=== PATIENT | female | born 1935 | race Caucasian/White ===

== ENCOUNTER → 2024-08-28 14:52 | Outpatient (BNVA) | payer MEDICARE, OTHER, SELFPAY | PROVIDERS: PCP Internal Medicine; Visit Provider Internal Medicine | DX: J84.9 Interstitial pulmonary disease, unspecified (principal); E78.00 Pure hypercholesterolemia, unspecified; I26.99 Other pulmonary embolism without acute cor pulmonale; K21.9 Gastro-esophageal reflux disease without esophagitis; F03.90 Unspecified dementia, unspecified severity, without behavioral disturbance, psychotic disturbance, mood disturbance, and anxiety; Z79.01 Long term (current) use of anticoagulants; Z23 Encounter for immunization | CPT/HCPCS: 90471; 90656; 96127; 99212 ==

== ENCOUNTER 2024-08-28 14:53 | Outpatient (AMB) | payer MEDICARE, OTHER, SELFPAY ==
--- NOTE | 2024-08-28 14:55 | A.OFFPC_ITS ---
Vital Signs 08/28/24 14:58 Height 4 ft 11 in Weight 145 lb 6 oz BMI 29.4 BP 110/70 Blood Pressure Location Lt brachial Position Sitting Pulse 86 Pulse Source Pulse Oximeter Pulse Oximetry (%) 96 Oxygen Delivery Method Room Air Intake Visit Reasons: 4mth f/u Intake Note: Patient is here to follow up on GERD, Hypercholesterolemia, Cognitive changes. Spouse requesting for SUPPLY CHAIN PROGRAM MANAGER services. Action Finisher Required: No Sales Assistant Institutional Sales: Present Accompanied by: Spouse Allergies atorvastatin [Lipitor] Allergy (Unknown, Verified 08/28/24 14:58) Unknown beclomethasone [From Qvar] Allergy (Unknown, Verified 08/28/24 14:58) Unknown oxycodone [From OxyContin] Allergy (Unknown, Verified 08/28/24 14:58) Hives penicillin V Allergy (Unknown, Verified 08/28/24 14:58) Unknown simvastatin Allergy (Unknown, Verified 08/28/24 14:58) Unknown Tobacco use date assessed: 08/28/24 Fall risk assessment: No Falls in past year Last assessed Fall Risk: 08/28/24 Dental Screening Dental Screen Date: 08/28/24 Did you have a dental visit in the last 12 months?: No Did you have a dental problem in the last 6 months where you did not have access to dental care?: No Was dental information given to patient?: No HPI 4mth f/u HPI Details 88-year-old overweight female with inter stitial lung disease history of pulmonary embolism depression GERD last seen in 01/29/2023. now with dementia, sits only at home. is asking for help at home [facility] Medical History Anxiety and depression GERD (gastroesophageal reflux disease) History of breast cancer History of esophageal dilatation Hypercholesterolemia Interstitial lung disease Pulmonary nodule Screening for diabetes mellitus Varicose veins of both lower extremities Vitamin B12 deficiency Vitamin D deficiency Surgical History History of colonoscopy H/O bilateral mastectomy History of surgery History of lumbar laminectomy History of tonsillectomy History of appendectomy History of section History of total abdominal hysterectomy History of cataract surgery History of lung biopsy H/O right mastectomy Family History Father Stroke Diabetes Hypertension Mother Diabetes Hypertension Cancer Brother No problems noted. Sister No problems noted. Son No problems noted. Daughter No problems noted. Daughter No problems noted. Social History Household Members: Spouse Household Members Other:: Grandchildren and spouse Housing: Apartment Alcohol intake: never Patient Tobacco Use Status: Never used Tobacco e-Cigarette/Vaping Use: Never Used Second Hand Smoke Exposure: No service: No Current occupational status: retired Cognitive needs: No Hearing needs: Yes Vision needs: Yes Questionnaire PHQ-9 Over the last 2 weeks, how often have you been bothered by any of the following problems? 1. Little interest or pleasure in doing things: not at all 2. Feeling down, depressed, or hopeless: not at all 3. Trouble falling or staying asleep, or sleeping too much: not at all 4. Feeling tired or having little energy: not at all 5. Poor appetite or overeating: not at all 6. Feeling bad about yourself - or that you are a failure or have let yourself or your family down: not at all 7. Trouble concentrating on things, such as reading the newspaper or watching television: not at all 8. Moving or speaking so slowly that other people could have noticed. Or the opposite - being so fidgety or restless that you have been moving around a lot more than usual: not at all 9. Thoughts that you would be better off or of hurting yourself in some way: not at all Total score: 0 Depression Screening Interpretation: Negative Depression Screening Done: Yes Source: Developed by Drs. Yohan Simental, Danae Osborne, Baron Will and colleagues, with an educational alverto from [employer]. Thrive Questionnaire Date Thrive assessed: 08/28/24 I am a: Patient What is your living situation today?: I have a steady place to live Within the past 12 months, did the food you bought not last and you didn't have the money to get more?: Never true Within the past 12 months, did you worry whether your food would run out before you got money to buy more?: Never true Do you have trouble paying for medicines?: No Do you have trouble getting transportation to medical appointments?: No Do you have trouble paying your heating and electricity bill?: No Do you have trouble taking care of your child, family member or friend?: No Do you have trouble with day-to-day activities such as bathing, preparing meals, shopping, managing finances, etc.?: No Are you currently unemployed and looking for a job?: No Are you interested in more education?: No Currently or been in a relationship where the following occur: No concerns reported THRIVE Score: 0 AUDIT C Alcohol Use Questionnaire (AUDIT-C) 1. How often do you have a drink containing alcohol?: Never Total Score: 0 HARI-7 AMB Questionnaire HARI-7 Date HARI - 7 assessed: 08/28/24 Feeling nervous, anxious, or on edge: 0 = Not at all Not being able to stop or control worryin = Not at all Worrying too much about different things: 0 = Not at all Trouble relaxin = Not at all Being so restless that it is hard to sit still: 0 = Not at all Becoming easily annoyed or irritable: 0 = Not at all Feeling afraid as if something awful might happen: 0 = Not at all Total HARI-7 score (0-4 normal; 5-9 mild; 10-14 moderate; 15-21 severe): 0 Source: Developed by Drs. Yohan Simental, Danae Osborne, Baron Will and colleagues, with an educational alverto from [employer]. Physical exam (Primary Care) Vital Signs: Last Vital Signs Pulse 86 08/28/24 14:58 BP 110/70 08/28/24 14:58 Pulse Ox 96 08/28/24 14:58 Oxygen Delivery Method Room Air 08/28/24 14:58 BMI result Body Mass Index 29.4 Tobacco/Smoking Status: Tobacco use Status Tobacco use date assessed 08/28/24 08/28/24 15:00 Patient Tobacco Use Status Never used Tobacco 08/28/24 15:00 e-Cigarette/Vaping Use Never Used 08/28/24 15:00 PHQ-9: PHQ-9 Score PHQ-9: Total score 0 08/28/24 15:16 Depression Screening Interpretation: Negative Thrive Assessment: Date of Thrive Assessment Date Thrive assessed 08/28/24 08/28/24 15:00 Currently or been in a relationship where the following occur: No concerns reported Const General: alert; No acute distress Eyes Conjunctivae: conjunctivae normal Resp Auscultation: clear to auscultation bilaterally Cardio Rate: regular rate Rhythm: regular rhythm GI Inspection: Yes normal to inspection Extrem General: Yes normal to inspection and No edema Office Procedures Flu Questionnaire Does the patient have a severe egg allergy?: No Does the patient have severe life threatening allergies?: No Does the patient have a fever or illness today?: No Has the patient ever had Guillain-Toney Syndrome?: No Has the patient ever had any past reaction to a flu shot?: No Immunizations Fluarix Triv [id number] (PF) 45 mcg (15 mcg x 3)/0.5 mL IM syringe Performing Provider: Virgil Pizarro MD [facility] [place] [facility] Administered by: Petrona Ha LPN on 08/28/24 15:25 Dose Route Admin Location Dispensed Lot Number Expiration Date [facility] Tack Maker 0.5 mL IM Left Deltoid 0.5 mL [id number] 05/11/25 30946-106-06 [employer] VIS Given Date VIS Provided VIS Publication Date 08/28/24 Single Vaccine 21 Eligibility Eligibility Date Funding Source Not [facility] Eligible 08/28/24 Private Coding Level of Care Code Est Pt Level 4 (07161) Diagnoses Interstitial lung disease J84.9 Pulmonary embolism I26.99 Hypercholesterolemia E78.00 Gastroesophageal reflux disease without esophagitis K21.9 Esophagitis presence: without esophagitis Dementia F03.90 Assessment & Plan Assessment & Plan (1) Interstitial lung disease: Comment: Hypersensitivity pneumonitis Dr.Adjello Hawkins Code(s): J84.9 - Interstitial pulmonary disease, unspecified Category: Medical Plan: Continue with oxygen and albuterol inhalers (2) Pulmonary embolism: Comment: 06/2022 Code(s): I26.99 - Other pulmonary embolism without acute cor pulmonale Category: Medical Plan: Continue with anticoagulation on apixaban 5 mg twice a day will advised renal function tests (3) Hypercholesterolemia: Code(s): E78.00 - Pure hypercholesterolemia, unspecified Category: Medical Plan: Avoid fried foods, chicken skin, eggs, butter margarine, pastries and meat. Be it pork or beef they have a lot of cholesterol continuing to monitor (4) GERD (gastroesophageal reflux disease): Code(s): K21.9 - Gastro-esophageal reflux disease without esophagitis Category: Medical Qualifiers: Esophagitis presence: without esophagitis Qualified Code(s): K21.9 - Gastro-esophageal reflux disease without esophagitis Plan: Avoid the foods that causes that usually spicy foods, tomato products, juices, coffee, soda and foods that your sensitive to. After eating do not lie down, allow 3-4 hours before in lie down. And keep the head of bed above 30 degrees to avoid the acid from going up. (5) Dementia: Code(s): F03.90 - Unspecified dementia, unspecified severity, without behavioral disturbance, psychotic disturbance, mood disturbance, and anxiety Category: Medical Plan: With the memory problem patient is in need of some help at home for activities of daily living like bathing keeping moving med education. Orders: Orders Influenza [id number] Immunization Today Z23 - Encounter for immunization Complete Blood Count Auto Diff Today J84.9 - Interstitial pulmonary disease, unspecified Free T4 (Free Thyroxine) Today J84.9 - Interstitial pulmonary disease, unspecified Vitamin B12 and Folate Today J84.9 - Interstitial pulmonary disease, unspecified Comprehensive Met. Panel Today J84.9 - Interstitial pulmonary disease, unspecified Thyroid Stimulating Hormone Today J84.9 - Interstitial pulmonary disease, unspecified
[2024-08-28 14:58] VITALS: BP 110/70; PULSE 86; O2SAT 96; BMI 29.4
== END 2024-08-28 15:38 | disposition home or self-care (01) ==
PROVIDERS: PCP Internal Medicine; Visit Provider Internal Medicine
DX: J84.9 Interstitial pulmonary disease, unspecified (principal); I26.99 Other pulmonary embolism without acute cor pulmonale; F03.90 Unspecified dementia, unspecified severity, without behavioral disturbance, psychotic disturbance, mood disturbance, and anxiety; E78.00 Pure hypercholesterolemia, unspecified; K21.9 Gastro-esophageal reflux disease without esophagitis

== ENCOUNTER 2024-12-11 14:11 | Outpatient (AMB) | payer MEDICARE, OTHER, SELFPAY ==
[2024-12-11 14:24] VITALS: BP 102/58; PULSE 94; TEMP 36.2; O2SAT 97; BMI 27.4
--- NOTE | 2024-12-11 14:24 | A.OFFPC_ITS ---
Vital Signs 3 12/11/24 14:24 Height 4 ft 11 in Weight 135 lb 8 oz BMI 27.4 BP 102/58 L Blood Pressure Location Rt brachial Position Sitting Pulse 94 Pulse Source Pulse Oximeter Temp 97.1 F Temp Source Temporal Artery Scan Pulse Oximetry (%) 97 Oxygen Delivery Method Room Air Intake Visit Reasons: 3mth f/u Final Inspector Required: No Accompanied by: Self / Same As Patient Allergies atorvastatin [Lipitor] Allergy (Unknown, Verified 12/11/24 14:29) Unknown beclomethasone [From Qvar] Allergy (Unknown, Verified 12/11/24 14:29) Unknown oxycodone [From OxyContin] Allergy (Unknown, Verified 12/11/24 14:29) Hives penicillin V Allergy (Unknown, Verified 12/11/24 14:29) Unknown simvastatin Allergy (Unknown, Verified 12/11/24 14:29) Unknown Tobacco use date assessed: 12/11/24 Fall risk assessment: No Falls in past year Last assessed Fall Risk: 12/11/24 Dental Screening Dental Screen Date: 12/11/24 Did you have a dental visit in the last 12 months?: No Did you have a dental problem in the last 6 months where you did not have access to dental care?: No Was dental information given to patient?: Patient has dentist HPI 3mth f/u 2 HPI0 Details 89-year-old overweight female noted 10 l b weight loss with hypercholesterolemia GERD interstitial lung disease history of breast cancer pulmonary embolism DVT dementia coming in for follow-up. Last seen in August 28 2024. fall 1.5 week ago and ER visit November 21, 2024 PAtient has dementia hear crash fall and had head laceration The patient is an 89-year-old female presenting with management of fall-related injuries and associated pain. Approximately a week and a half ago, the patient sustained a fall in the bathroom, leading to a head laceration, a right elbow injury, and subsequent pain. Emergency services were contacted, and the patient received treatment for the head laceration, which included two raquel. No intracranial injuries were indicated, as an electrocardiogram (EKG) was not deemed necessary per the emergency response evaluation. The patient also reports significant pain and discomfort, particularly when her legs are handled, making the application of support stockings difficult. The injuries have resulted in limited mobility, necessitating the patient to sleep in a recliner and use a walker for ambulation. Swelling in the lower extremities has been noted and managed at home with topical treatments like icy hot cream. The patient has been using a heating pad, although inconsistently, and she experiences difficulty with dressing changes and pain management due to the extent of injuries and edema. [facility] Medical History Anxiety and depression GERD (gastroesophageal reflux disease) History of breast cancer History of esophageal dilatation Hypercholesterolemia Interstitial lung disease Pulmonary nodule Screening for diabetes mellitus Varicose veins of both lower extremities Vitamin B12 deficiency Vitamin D deficiency Surgical History History of colonoscopy H/O bilateral mastectomy History of surgery History of lumbar laminectomy History of tonsillectomy History of appendectomy History of section History of total abdominal hysterectomy History of cataract surgery History of lung biopsy H/O right mastectomy Family History Father Stroke Diabetes Hypertension Mother Diabetes Hypertension Cancer Brother No problems noted. Sister No problems noted. Son No problems noted. Daughter No problems noted. Daughter No problems noted. Social History Household Members: Spouse Household Members Other:: Grandchildren and spouse Housing: Apartment Alcohol intake: never Patient Tobacco Use Status: Never used Tobacco e-Cigarette/Vaping Use: Never Used Second Hand Smoke Exposure: No service: No Current occupational status: retired Cognitive needs: No Hearing needs: Yes Vision needs: Yes Questionnaire PHQ-9 Over the last 2 weeks, how often have you been bothered by any of the following problems? 1. Little interest or pleasure in doing things: not at all 2. Feeling down, depressed, or hopeless: not at all 3. Trouble falling or staying asleep, or sleeping too much: not at all 4. Feeling tired or having little energy: not at all 5. Poor appetite or overeating: not at all 6. Feeling bad about yourself - or that you are a failure or have let yourself or your family down: not at all 7. Trouble concentrating on things, such as reading the newspaper or watching television: not at all 8. Moving or speaking so slowly that other people could have noticed. Or the opposite - being so fidgety or restless that you have been moving around a lot more than usual: not at all 9. Thoughts that you would be better off or of hurting yourself in some way: not at all Total score: 0 Depression Screening Interpretation: Negative Depression Screening Done: Yes 44971 - PHQ-9 Billing: Yes Source: Developed by Drs. Yohan Simental, Danae Osborne, Baron Will and colleagues, with an educational alverto from [employer]. Thrive Questionnaire Date Thrive assessed: 12/11/24 I am a: Patient What is your living situation today?: I have a steady place to live Within the past 12 months, did the food you bought not last and you didn't have the money to get more?: Never true Within the past 12 months, did you worry whether your food would run out before you got money to buy more?: Never true Do you have trouble paying for medicines?: No Do you have trouble getting transportation to medical appointments?: No Do you have trouble paying your heating and electricity bill?: No Do you have trouble taking care of your child, family member or friend?: No Do you have trouble with day-to-day activities such as bathing, preparing meals, shopping, managing finances, etc.?: No Are you currently unemployed and looking for a job?: No Are you interested in more education?: No Currently or been in a relationship where the following occur: No concerns reported THRIVE Score: 0 AUDIT C Alcohol Use Questionnaire (AUDIT-C) 1. How often do you have a drink containing alcohol?: Never 3. How often do you have six or more drinks on one occasion?: Never Total Score: 0 HARI-7 AMB Questionnaire HARI-7 Date HARI - 7 assessed: 12/11/24 Feeling nervous, anxious, or on edge: 0 = Not at all Not being able to stop or control worryin = Not at all Worrying too much about different things: 0 = Not at all Trouble relaxin = Not at all Being so restless that it is hard to sit still: 0 = Not at all Becoming easily annoyed or irritable: 0 = Not at all Feeling afraid as if something awful might happen: 0 = Not at all Total HARI-7 score (0-4 normal; 5-9 mild; 10-14 moderate; 15-21 severe): 0 Source: Developed by Drs. Yohan Simental, Danae Osborne, Baron Will and colleagues, with an educational alverto from [employer]. HARI-7 Assessment Billing HAIR-7 Assessment Tool: HARI-7 Assessment 01249 Physical exam (Primary Care) Vital Signs: Last Vital Signs Temp 97.1 F 12/11/24 14:24 Pulse 94 12/11/24 14:24 BP 102/58 L 12/11/24 14:24 Pulse Ox 97 12/11/24 14:24 Oxygen Delivery Method Room Air 12/11/24 14:24 BMI result Body Mass Index 27.4 Tobacco/Smoking Status: Tobacco use Status Tobacco use date assessed 12/11/24 12/11/24 14:30 Patient Tobacco Use Status Never used Tobacco 12/11/24 14:29 e-Cigarette/Vaping Use Never Used 12/11/24 14:29 Patient walkls with manasker PHQ-9: PHQ-9 Score PHQ-9: Total score 0 12/11/24 14:29 Depression Screening Interpretation: Negative Thrive Assessment: Date of Thrive Assessment Date Thrive assessed 12/11/24 12/11/24 14:29 Currently or been in a relationship where the following occur: No concerns reported Const General: alert; No acute distress HENMT Other: occipital scalp laceration 3 cm with 2 raquel Eyes Conjunctivae: conjunctivae normal Resp Auscultation: clear to auscultation bilaterally Cardio Rate: regular rate Rhythm: regular rhythm GI Inspection: Yes normal to inspection Back/Spine/Pelvis Back/spine/pelvis image: 2 1. 2 cm skin abrasion peeling off - antibiotic ointment and bandage placed Skin Other: R elbow skin abrasion , bilateral legs 2+ edema with hematoma bilateral Extrem General: Yes normal to inspection and No edema Coding Level of Care Code Est Pt Level 4 (55909) Complex EM visit Add On G2211 Diagnoses History of breast cancer Z85.3 Hypercholesterolemia E78.00 Gastroesophageal reflux disease without esophagitis K21.9 Esophagitis presence: without esophagitis Interstitial lung disease J84.9 DVT of lower extremity, bilateral I82.403 Dementia F03.90 Occipital scalp laceration S01.01XA Laceration of elbow, right S51.011A Hematoma of leg S80.10XA Leg swelling M79.89 Additional Codes HARI-7 Assessment Billing - HARI-7 Assessment Tool: HARI-7 Assessment 55753 ([id number]) PHQ-9 - 71752 - PHQ-9 Billing: Yes ([id number]) Assessment & Plan Assessment & Plan (1) History of breast cancer: Comment: Right breast cancer [address] Trejo surgery Dr. ernandez bilateral mastectomy no mammogram Code(s): Z85.3 - Personal history of malignant neoplasm of breast Category: Medical Plan: Patient had bilateral mastectomy. (2) Hypercholesterolemia: Code(s): E78.00 - Pure hypercholesterolemia, unspecified Category: Medical Plan: Avoid fried foods, chicken skin, eggs, butter margarine, pastries and meat. Be it pork or beef they have a lot of cholesterol continue to monitor (3) GERD (gastroesophageal reflux disease): Code(s): K21.9 - Gastro-esophageal reflux disease without esophagitis Category: Medical Qualifiers: Esophagitis presence: without esophagitis Qualified Code(s): K21.9 - Gastro-esophageal reflux disease without esophagitis Plan: Avoid the foods that causes that usually spicy foods, tomato products, juices, coffee, soda and foods that your sensitive to. After eating do not lie down, allow 3-4 hours before in lie down. And keep the head of bed above 30 degrees to avoid the acid from going up. (4) Interstitial lung disease: Comment: Hypersensitivity pneumonitis Dr.Adjello Hawkins Code(s): J84.9 - Interstitial pulmonary disease, unspecified Category: Medical Plan: Stable. (5) DVT of lower extremity, bilateral: Comment: 06/2022 Code(s): I82.403 - Acute embolism and thrombosis of unspecified deep veins of lower extremity, bilateral Category: Medical Plan: Continue with anticoagulation (6) Dementia: Code(s): F03.90 - Unspecified dementia, unspecified severity, without behavioral disturbance, psychotic disturbance, mood disturbance, and anxiety Category: Medical Plan: conservative management (7) Occipital scalp laceration: Code(s): S01.01XA - Laceration without foreign body of scalp, initial encounter Category: Medical Plan: 2 raquel taken out (8) Laceration of elbow, right: Code(s): S51.011A - Laceration without foreign body of right elbow, initial encounter Category: Medical Plan: bandage placed (9) Hematoma of leg: Code(s): S80.10XA - Contusion of unspecified lower leg, initial encounter Category: Medical Plan: heat and elevated legs (10) Leg swelling: Code(s): M79.89 - Other specified soft tissue disorders Category: Medical Plan: advised to elevate legs , support stocking , exercise. heating pads help. requested blood work Plan - Head laceration: [place] removed with application of antibiotic ointment to promote healing. - Right elbow injury: Continuation of appropriate wound care with the application of bandages as needed. - Lower extremity edema: Recommend graduated compression stockings to reduce swelling; supportive elevation advised. - Pain Management: Consideration for ongoing pain management strategy, including topical analgesics and elevation. Discussed the potential benefits of a heating pad for circulatory improvement. - Blood work: Plan to order comprehensive blood tests to evaluate kidney function and other potential systemic issues associated with the prescribed diuretic, given concerns for fluid status management. - Coordination of care: [facility]iated contact with [facility] for home assistance services to support daily activities and wound care.
--- OUTSIDE RECORDS SUMMARY | 2024-12-11 17:57 | XMS_ITS | Clinical Summary ---
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 Ordering Clinician Indication Dosage Frequency Signature (SIG) Comments Components Eliquis 5 mg tablet 2023-11 0-18 00:00: 00 Yes [id number] 5 mg 2 TIMES DAILY 5 mg 2 TIMES DAILY (route: oral) Med Classific ation: Hematolog ical Agents sertraline 25 mg tablet 2023-11 0-15 00:00: 00 Yes [id number] 1 tablet EVERY AM 1 tablet EVERY AM (route: oral) Med Classific ation: Central Nervous System Agents pantoprazol e 40 mg tablet,estela yed release 9-28 00:00: 00 Yes [id number] 1 tablet 2 TIMES DAILY 1 tablet 2 TIMES DAILY (route: oral) Med Classific ation: Gastroint estinal Therapy Agents torsemide 10 mg tablet 08-03 00:00: 00 Yes [id number] Per instruc tions EVERY DAY Per instructio ns EVERY DAY (route: oral) Med Classific ation: Cardiovas cular Therapy Agents Bactrim 400 mg-80 mg tablet 2023-11 00:00: 00 Yes [id number] 1 tablet 3 TIMES A WEEK 1 tablet 3 TIMES A WEEK (route: oral) Med Classific ation: Anti-Infe ctive Agents prednisone 20 mg tablet 2023-11 00:00: 00 Yes [id number] 20 mg EVERY AM 20 mg EVERY AM (route: oral) Med Classific ation: Endocrine sucralfate 1 gram tablet 2023-11 00:00: 00 Yes [id number] 1 g 2 TIMES DAILY 1 g 2 TIMES DAILY (route: oral) Med Classific ation: Gastroint estinal Therapy Agents cholecalcif moira (vitamin D3) 25 mcg (1,000 unit) tablet 2023-11 00:00: 00 Yes [id number] 1 tablet EVERY AM 1 tablet EVERY AM (route: oral) Med Classific ation: Electroly te Balance-N utritiona l Products Ventolin HFA 90 mcg/actuati on aerosol inhaler 2023-11 00:00: 00 Yes [id number] shortness of breath Per instruc tions DIRECTED Per instructio ns DIRECTED (route: inhalation ) Med Classific ation: Respirato ry Therapy Agents Vital Signs Vital Name Observation Time Observation Value Commen ts Temperature 2024-10-29 08:54:00.000 97.5 [degF] BMI (%) 2024-09-17 12:20:50.000 26 kg/m2 Height 2024-09-17 12:20:23.000 59 [in_us] Pulse 2024-11-13 12:20:00.000 78 /min Pulse 2024-11-03 11:01:00.000 73 /min Pulse 2024-10-29 08:54:00.000 76 /min Pulse 2024-10-23 13:35:00.000 85 /min Pulse 2024-10-16 11:03:00.000 79 /min Pulse 2024-10-08 11:18:00.000 81 /min Pulse 2024-10-01 12:08:00.000 69 /min Pulse 2024-09-24 11:38:00.000 93 /min Pulse 2024-09-17 13:03:00.000 79 /min O2 Saturation (%) 2024-11-13 12:23:00.000 97 % O2 Saturation (%) 2024-10-29 08:54:00.000 96 % O2 Saturation (%) 2024-10-08 11:22:00.000 95 % O2 Saturation (%) 2024-09-24 11:39:00.000 97 % O2 Saturation (%) 2024-09-17 13:05:00.000 95 % Respirations 2024-11-13 12:20:00.000 18 /min Respirations 2024-11-03 11:01:00.000 18 /min Respirations 2024-10-29 08:54:00.000 16 /min Respirations 2024-10-23 13:35:00.000 18 /min Respirations 2024-10-16 10:58:00.000 18 /min Respirations 2024-10-08 11:18:00.000 18 /min Respirations 2024-10-01 12:08:00.000 18 /min Respirations 2024-09-24 11:38:00.000 18 /min Respirations 2024-09-17 13:03:00.000 18 /min Weight (lbs) 2024-09-17 12:20:50.000 130 [lb_av] Systolic Blood Pressure 2024-11-13 12:20:00.000 113 mm [Hg] Systolic Blood Pressure 2024-11-03 11:01:00.000 151 mm [Hg] Systolic Blood Pressure 2024-10-29 08:54:00.000 130 mm [Hg] Systolic Blood Pressure 2024-10-23 13:35:00.000 118 mm [Hg] Systolic Blood Pressure 2024-10-16 10:58:00.000 105 mm [Hg] Systolic Blood Pressure 2024-10-08 11:18:00.000 125 mm [Hg] Systolic Blood Pressure 2024-10-01 12:08:00.000 117 mm [Hg] Systolic Blood Pressure 2024-09-24 11:38:00.000 121 mm [Hg] Systolic Blood Pressure 2024-09-17 13:03:00.000 114 mm [Hg] Diastolic Blood Pressure 2024-11-13 12:20:00.000 59 mm [Hg] Diastolic Blood Pressure 2024-11-03 11:01:00.000 78 mm [Hg] Diastolic Blood Pressure 2024-10-29 08:54:00.000 76 mm [Hg] Diastolic Blood Pressure 2024-10-23 13:35:00.000 66 mm [Hg] Diastolic Blood Pressure 2024-10-16 10:58:00.000 55 mm [Hg] Diastolic Blood Pressure 2024-10-08 11:18:00.000 72 mm [Hg] Diastolic Blood Pressure 2024-10-01 12:08:00.000 70 mm [Hg] Diastolic Blood Pressure 2024-09-24 11:38:00.000 70 mm [Hg] Diastolic Blood Pressure 2024-09-17 13:03:00.000 58 mm [Hg] Plan of Treatment Planned Activity Planned Date Details Comments Future Scheduled Test SKILLED NU RSE TO EVALUATE PATIENT, IDENTIFY PRIMARY AND CO-MORBID CONDITIONS CODED PER CODING GUIDELINES, AND DEVELOP PATIENT SPECIFIC PLAN OF CARE THAT INCLUDES PATIENT GOAL FOR HOME HEALTH. [code = SKILLED NURSE TO EVALUATE PATIENT, IDENTIFY PRIMARY AND CO-MORBID CONDITIONS CODED PER CODING GUIDELINES, AND DEVELOP PATIENT SPECIFIC PLAN OF CARE THAT INCLUDES PATIENT GOAL FOR HOME HEALTH.] Future Scheduled Test SKILLED NU RSE TO O/A OF PATIENTS MENTAL/BEHAVIORAL STATUS, ASSESS VITAL SIGNS WEEKLY. ALLOW 2 PRNS FOR MEDICATION MANAGEMENT. [code = SKILLED NURSE TO O/A OF PATIENTS MENTAL/BEHAVIORAL STATUS, ASSESS VITAL SIGNS WEEKLY. ALLOW 2 PRNS FOR MEDICATION MANAGEMENT.] Future Scheduled Test SKILLED NU RSE FOR O/A OF GENERAL HEALTH STATUS OF PAIN, CARDIAC, RESPIRATORY, GASTROINTESTINAL, GENITOURINARY, SKIN, NEUROLOGIC, ENDOCRINE SYSTEMS TO IDENTIFY CHANGES ASSOCIATED WITH EXACERBATION FOR EARLY INTERVENTION OF COMPLICATIONS WEREKLY. [code = SKILLED NURSE FOR O/A OF GENERAL HEALTH STATUS OF PAIN, CARDIAC, RESPIRATORY, GASTROINTESTINAL, GENITOURINARY, SKIN, NEUROLOGIC, ENDOCRINE SYSTEMS TO IDENTIFY CHANGES ASSOCIATED WITH EXACERBATION FOR EARLY INTERVENTION OF COMPLICATIONS WEREKLY.] Future Scheduled Test SKILLED NU RSE FOR O/A AND SKILLED TEACHING RELATED TO MANAGEMENT OF DEPRESSIVE SYMPTOMS AND/OR DEPRESSION. SN TO REPORT SIGNIFICANT CHANGE IN DEPRESSIVE SYMPTOMS TO CLINICAL PROVIDER FOR EARLY INTERVENTION. [code = SKILLED NURSE FOR O/A AND SKILLED TEACHING RELATED TO MANAGEMENT OF DEPRESSIVE SYMPTOMS AND/OR DEPRESSION. SN TO REPORT SIGNIFICANT CHANGE IN DEPRESSIVE SYMPTOMS TO CLINICAL PROVIDER FOR EARLY INTERVENTION.] Future Scheduled Test SKILLED NU RSE TO PERFORM HOME SAFETY AND FALL ASSESSMENT AND PROVIDE INSTRUCTION TO IMPLEMENT HOME SAFETY AND FALL PREVENTION STRATEGIES. [code = SKILLED NURSE TO PERFORM HOME SAFETY AND FALL ASSESSMENT AND PROVIDE INSTRUCTION TO IMPLEMENT HOME SAFETY AND FALL PREVENTION STRATEGIES.] Future Scheduled Test SKILLED NU RSE FOR OBSERVATION AND ASSESSMENT OF PATIENTS PAIN LEVEL AND EFFECTIVENESS OF PAIN MANAGEMENT REGIMEN. SKILLED NURSE TO INSTRUCT PATIENT/CAREGIVER REGARDING PHARMACOLOGIC AND NON-PHARMACOLOGIC PAIN CONTROL MEASURES. SKILLED NURSE TO REPORT TO PHYSICIAN IF PAIN IS UNCONTROLLED WITH CURRENT PAIN MANAGEMENT REGIMEN. [code = SKILLED NURSE FOR OBSERVATION AND ASSESSMENT OF PATIENTS PAIN LEVEL AND EFFECTIVENESS OF PAIN MANAGEMENT REGIMEN. SKILLED NURSE TO INSTRUCT PATIENT/CAREGIVER REGARDING PHARMACOLOGIC AND NON-PHARMACOLOGIC PAIN CONTROL MEASURES. SKILLED NURSE TO REPORT TO PHYSICIAN IF PAIN IS UNCONTROLLED WITH CURRENT PAIN MANAGEMENT REGIMEN.] Future Scheduled Test SKILLED NU RSE TO INSTRUCT PATIENT/CAREGIVER ON ANXIETY MANAGEMENT UTILIZING THE M[facility] SPECIALTY PROGRAM. [code = SKILLED NURSE TO INSTRUCT PATIENT/CAREGIVER ON ANXIETY MANAGEMENT UTILIZING THE M[facility] C[facility] SPECIALTY PROGRAM.] Future Scheduled Test PHYSICAL T HERAPIST TO EVALUATE PATIENT FOR WEAKNESS. [code = PHYSICAL THERAPIST TO EVALUATE PATIENT FOR WEAKNESS.] Future Scheduled Test OCCUPATION AL THERAPIST TO EVALUATE PATIENT FOR NEED OF OCCUPATIONAL THEREPY. [code = OCCUPATIONAL THERAPIST TO EVALUATE PATIENT FOR NEED OF OCCUPATIONAL THEREPY.] Future Scheduled Test MEDICAL SO CIAL WORKER TO EVALUATE PATIENT FOR NEED FOR SERVICES, HOME HEALTH AIDE [code = KITMAN TO EVALUATE PATIENT FOR NEED FOR SERVICES, HOME HEALTH AIDE] Future Scheduled Test SKILLED NU RSE WILL MAINTAIN SITUATIONAL AWARENESS FOR SAFETY AND WILL NOTIFY CLINICAL SHEET METAL WORKER AND PHYSICIAN/PROVIDER WITH ANY CHANGE IN CONDITION. [code = SKILLED NURSE WILL MAINTAIN SITUATIONAL AWARENESS FOR SAFETY AND WILL NOTIFY CLINICAL SHEET METAL WORKER AND PHYSICIAN/PROVIDER WITH ANY CHANGE IN CONDITION.] Future Scheduled Test SKILLED NU RSE TO PROVIDE INSTRUCTION TO PATIENT/CAREGIVER RELATED TO DISCHARGE PLANNING. [code = SKILLED NURSE TO PROVIDE INSTRUCTION TO PATIENT/CAREGIVER RELATED TO DISCHARGE PLANNING. ] Goal 2024-11-13 Patient Goal - MAINTAIN HEAL TH Goal Provider Goal - A PLAN OF CARE WILL BE ESTABLISHED THAT MEETS PATIENT'S LONGTERM NEEDS AND INCLUDES PATIENT GOAL FOR HOME HEALTH. Goal Provider Goal - ALTERED MENTAL/BEHAVIORAL STATUS WILL BE IDENTIFIED PROMPTLY AND INTERVENTION INITIATED QUICKLY TO MINIMIZE ASSOCIATED RISKS THROUGHOUT CERTIFICATION PERIOD. Goal Provider Goal - CHANGE IN GENERAL HEALTH STATUS WILL BE IDENTIFIED AND REPORTED TO PHYSICIAN FOR PROMPT INTERVENTION TO MINIMIZE ASSOCIATED RISKS THROUGHOUT CERTIFICATION PERIOD. Goal Provider Goal - PATIENT WILL REMAIN SAFE WITHOUT DECOMPENSATION IN DEPRESSIVE CONDITION, WHILE MAINTAINING OPTIMAL LEVEL OF MENTAL HEALTH AND WELL BEING THROUGHOUT CERTIFICATION PERIOD. Goal Provider Goal - PATIENT/CAREGIVER WILL VERBALIZE/DEMONSTRATE EFFECTIVE HOME SAFETY AND FALL PREVENTION STRATEGIES THROUGHOUT CERTIFICATION PERIOD. Goal Provider Goal - PATIENT/CAREGIVER WILL DEMONSTRATE UNDERSTANDING OF PHARMACOLOGIC AND NONPHARMACOLOGIC PAIN CONTROL MEASURES AND PATIENT WILL HAVE IMPROVEMENT IN PAIN INTERFERING WITH ACTIVITY EVIDENCED BY PAIN CONTROLLED AT LEVEL OF 7 OR LESS BY END OF CERTIFICATION PERIOD. Goal Provider Goal - PATIENT WILL VERBALIZE DECREASED ANXIETY LEVEL THROUGHOUT CERTIFICATION PERIOD A RESULT OF PARTICIPATION IN THE M[facility] CARE SPECIALTY PROGRAM. Goal Provider Goal - A PHYSICAL THERAPY EVALUATION TO BE COMPLETED WITH RECOMMENDATIONS AND/OR WRITTEN PLAN OF TREATMENT ESTABLISHED FOR PHYSICIANS SIGNATURE. Goal Provider Goal - OCCUPATIONAL THERAPY EVALUATION TO BE COMPLETED WITH RECOMMENDATIONS AND WRITTEN PLAN OF TREATMENT ESTABLISHED FOR THE PHYSICIANS SIGNATURE. Goal Provider Goal - KITMAN TO COMPLETE EVALUATION TO ADDRESS THE PATIENTS SOCIAL AND EMOTIONAL FACTORS AND/OR WRITTEN PLAN OF TREATMENT ESTABLISHED FOR THE PHYSICIAN'S SIGNATURE. Goal Provider Goal - PATIENT WILL REMAIN SAFE IN THE COMMUNITY AND WILL BE FREE OF DANGER TO SELF AND OTHERS THROUGHOUT THE CERTIFICATION PERIOD. Goal Provider Goal - PATIENT/CAREGIVER WILL VERBALIZE UNDERSTANDING OF DISCHARGE PLANNING INSTRUCTIONS BY DATE OF DISCHARGE. Reason for Visit INDEPENDENT IN THE HOME Encounters Start Date/Time End Date/Time Encounter Type Admission Type Attending [facility] Care Department Encounter ID Discharge Date Discharge Status Discharge Condition Discharge Reason Percent Goals Met 2024-09-17 00:00:00 2024-11-13 00:00:00 Outpatient NEW ADMISSION PRIMITIVO [facility] [id number] 2024-11-13 00:00:00 DISCHARGE TO HOME OR SELF CARE INDEPENDEN T IN THE HOME LACK OF AUTHORIZAT ION 100.00
== END 2024-12-11 15:23 | disposition home or self-care (01) ==
PROVIDERS: PCP Internal Medicine; Visit Provider Internal Medicine
DX: E78.00 Pure hypercholesterolemia, unspecified (principal); J84.9 Interstitial pulmonary disease, unspecified; I82.403 Acute embolism and thrombosis of unspecified deep veins of lower extremity, bilateral; F03.90 Unspecified dementia, unspecified severity, without behavioral disturbance, psychotic disturbance, mood disturbance, and anxiety; Z85.3 Personal history of malignant neoplasm of breast; K21.9 Gastro-esophageal reflux disease without esophagitis; S01.01XA Laceration without foreign body of scalp, initial encounter; S51.011A Laceration without foreign body of right elbow, initial encounter; S80.11XA Contusion of right lower leg, initial encounter; M79.89 Other specified soft tissue disorders; S80.12XA Contusion of left lower leg, initial encounter

== ENCOUNTER → 2024-12-11 14:11 | Outpatient (BNVA) | payer MEDICARE, OTHER, SELFPAY | PROVIDERS: PCP Internal Medicine; Visit Provider Internal Medicine | DX: E78.00 Pure hypercholesterolemia, unspecified (principal); K21.9 Gastro-esophageal reflux disease without esophagitis; J84.9 Interstitial pulmonary disease, unspecified; I82.403 Acute embolism and thrombosis of unspecified deep veins of lower extremity, bilateral; F03.90 Unspecified dementia, unspecified severity, without behavioral disturbance, psychotic disturbance, mood disturbance, and anxiety; S01.01XD Laceration without foreign body of scalp, subsequent encounter; S51.011D Laceration without foreign body of right elbow, subsequent encounter; S80.10XD Contusion of unspecified lower leg, subsequent encounter; M79.89 Other specified soft tissue disorders; Z85.3 Personal history of malignant neoplasm of breast | CPT/HCPCS: 96127; 99212 ==